=== PATIENT | female | born 1965 | race Caucasian/White ===

== ENCOUNTER → 2018-03-16 16:06 | Outpatient (CLI) | payer OTHER, SELFPAY ==
--- NOTE | 2018-03-16 16:10 | DI.RAD.S_ITS ---
PROCEDURE: XR CLAVICLE LT INDICATIONS: Clavicle pain TECHNIQUE: 2 views of the clavicle were acquired. COMPARISON: None. FINDINGS: Bones: No fractures or dislocations. No suspicious bony lesions. Soft tissues: No suspicious soft tissue calcifications. Patient is status post left axillary laura dissection. IMPRESSION: No radiographic abnormalities. If pain persists, consider advanced imaging with CT or MRI. Dictated by: Janet Starr M.D. on 03/16/2018 at 17:12 Approved by: Janet Starr M.D. on 03/16/2018 at 17:12
--- NOTE | 2018-03-16 16:10 | DI.RAD.S_ITS ---
PROCEDURE: STERNOCLAVICULAR JOINT BI INDICATIONS: Clavicle pain TECHNIQUE: 3 views of the sternoclavicular joints acquired. COMPARISON: None. FINDINGS: Bones: No dislocation. A subtle radiolucency is present at the proximal aspect of the left clavicle seen only on the oblique view. No other bony abnormalities. Soft tissues: Visualized lung apices are clear. No suspicious soft tissue calcifications or densities. Surgical clips are projected over the left axilla. IMPRESSION: Subtle lucency within the proximal aspect of the left clavicle. It is unclear whether this represents artifact or fracture. If there is point tenderness in this region, CT may be helpful to further characterize findings. Dictated by: Janet Starr M.D. on 03/16/2018 at 17:12 Approved by: Janet Starr M.D. on 03/16/2018 at 17:14
== END ==
PROVIDERS: Visit Provider Physician Assistant
DX: M25.512 Pain in left shoulder (principal); M89.8X1 Other specified disorders of bone, shoulder
CPT/HCPCS: 71130; 73000

== ENCOUNTER 2018-03-17 14:49 | Emergency (ER) | payer OTHER, SELFPAY ==
[2018-03-17 14:57] VITALS: BP 146/100; PULSE 76; RESP 18; TEMP 36.4; O2SAT 100; BMI 28.6
--- NOTE | 2018-03-17 15:00 | PC.NURSE ---
Seen at walk in clinic yesterday. Using ice for pain. States she can't take many pain medications r/t renal insuf r/t past chemotherapy and states I don't do well with narcotics.
--- NOTE | 2018-03-17 16:13 | ED.FALL ---
HPI - Fall General Chief Complaint: Trauma Stated Complaint: BROKEN SUB CLAVICLE JOINT, WALK IN SENT FOR CT Time Seen by Provider: 03/17/18 14:54 History of Present Illness HPI Narrative: HPI 52-year-old female with history of breast CA in remission and osteoporosis/osteopenia presents for further evaluation of a proximal left clavicular fracture and occurred following a mechanical fall from standing height 2 days prior to presentation. [place] catching herself partially with her outstretched hand. The patient had immediate pain in her proximal left clavicle. Patient also notes mild left AC discomfort and left trapezius pain. Patient also notes a mild sensation of discomfort when swallowing, this discomfort has remained stable and does not interfere with swallowing for breathing in his been present since her injury. Patient went to urgent care where she had imaging of her clavicle and sternoclavicular joint is was referred to the emergency department as the radiology read noted that the CTA may be helpful to further characterize findings. Patient without shortness of breath, denies further injuries. M/S/F/SocHx notable for: breast cancer, now in remission, osteopenia/osteoporosis; remainder reviewed with patient and in chart. ROS: Negative constitutional, eye, cardiovascular, pulmonary, GI, , MSK, skin, neurologic, psychiatric, endocrine unless noted in the HPI. Exam Gen: Pleasant, non-toxic appearing, resting in mild discomfort. HEENT: NC, AT, PEERL, EOMI. Patient speak comfortably, normal phonation, swallowing normal. Resp: Clear to auscultation bilaterally, normal work of breathing, no accessory muscle usage. Card: Regular rate and rhythm with no murmurs, rubs, or gallops, extremities warm and well perfused. GI: Non-tender to palpation throughout all quadrants, no focal tenderness at McBurney's point, negative Fuentes's sign, non-distended, no rebound or guarding. : No suprapubic tenderness to palpation. MSK: * spine - no C, T tenderness to palpation or palpable abnormalities * chest - point tenderness palpation on the proximal left clavicle. Mild surrounding ecchymosis, remainder of clavicle nontender with the exception of AC joint point tenderness to palpation. There is mild diffuse tenderness to palpation of the left trapezius without further palpable abnormalities, trapezius visually normal. * LUE - full functional range of motion left shoulder, left elbow, left wrist. 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 Sensation intact to touch over the deltoid. * remainder - remainder of appendicular skeleton and torso visually normal, patient ambulatory without discomfort. Skin: Normal color with no visible lesions. Neuro: AO x 3, no facial asymmetry, vision and hearing WNL. Psych: Mood and affect appropriate. MDM Previous chart, nursing note, labs, imaging, and vitals reviewed. A/P: 52-year-old female with history of breast CA in remission and osteoporosis/osteopenia presents for further evaluation of a proximal left clavicular fracture and occurred following a mechanical fall from standing height 2 days prior to presentation. Outside imaging reviewed (clavicle x-ray and sternoclavicular joint x-ray), this is notable for subtle lucency within the proximal aspect of the left clavicle. This correlates with the point tenderness at the patient is displaying. Physical exam and imaging without evidence of pneumothorax. Suspect nondisplaced left clavicular fracture. Regarding the patient's reported discomfort on swallowing this is stable, minor, absent without provocation, and the patient is not on anticoagulation order she any known coagulopathies. Given the minor nature the patient's injury is felt to be highly unlikely that the patient has a large vessel injury or esophageal injury. Suspect referred pain secondary to a food bolus passing under the area of injury. Discussion was had with the patient regarding further imaging versus watchful waiting. Further imaging is currently felt to be of low utility the patient elected to pursue watchful waiting. A sling was offered, however the patient notes that she is a sling at home and her trapezius discomfort is interfering with a sling. Pain medications offer, patient's poor renal function, as such incidents are not appropriate, however she is using acetaminophen but declined narcotic pain medications due to prior adverse side effects. Patient given return to care precautions instructed to follow up with orthopedic surgery Impression: left calvicular fracture. (please reference below for remainder of encounter information) Related Data Home Medications Medication Instructions Recorded Confirmed Biocel (with Lutein) 1 tab PO DAILY 03/17/18 03/17/18 Fish Oil 1 cap PO DAILY 03/17/18 03/17/18 Green Tea 1 dose PO DAILY 03/17/18 03/17/18 Heart Supplement 1 dose PO DAILY 03/17/18 03/17/18 Probiotic 1 tab PO DAILY 03/17/18 03/17/18 Supplements 1 dose PO DAILY 03/17/18 03/17/18 Vitamin B-12 1 tab PO DAILY 03/17/18 03/17/18 Vitamin D3 1 cap PO DAILY 03/17/18 03/17/18 calcium acetate 1 tab PO DAILY 03/17/18 03/17/18 carvedilol 3.125 mg PO BID 03/17/18 03/17/18 magnesium 1 tab PO DAILY 03/17/18 03/17/18 Allergies Allergy/AdvReac Type Severity Reaction Status Date / Time Sulfa (Sulfonamide Allergy Mild vomiting Verified 03/16/18 16:53 Antibiotics) Exam Initial Vital Signs Initial Vital Signs: Vital Signs Temperature 97.6 F 03/17/18 14:57 Pulse Rate 76 03/17/18 14:57 Respiratory Rate 18 03/17/18 14:57 Blood Pressure 146/100 H 03/17/18 14:57 Pulse Oximetry 100 03/17/18 14:57 PFSH Social History Smoking Status: Never smoker Course Vital Signs - 8 hr 03/17/18 14:57 Temperature 97.6 F Pulse Rate 76 Respiratory Rate 18 Blood Pressure 146/100 H Pulse Oximetry 100 Discharge Plan Departure Prescriptions: No Action carvedilol 3.125 mg Tablet 3.125 mg PO BID RF: 0 Biocel (with Lutein) 1 tab PO DAILY RF: 0 Fish Oil 1 cap PO DAILY RF: 0 Green Tea 1 dose PO DAILY RF: 0 Probiotic 1 tab PO DAILY RF: 0 Vitamin B-12 1 tab PO DAILY RF: 0 Vitamin D3 1 cap PO DAILY RF: 0 calcium acetate 1 tab PO DAILY RF: 0 magnesium 1 tab PO DAILY RF: 0 Heart Supplement 1 dose PO DAILY RF: 0 Supplements 1 dose PO DAILY RF: 0
[2018-03-17 16:27] VITALS: BP 138/89; PULSE 86; RESP 16; O2SAT 100
== END 2018-03-17 16:28 | disposition home or self-care (01) ==
PROVIDERS: Emergency Provider Emergency Medicine
DX: R52 Pain, unspecified (principal)
CPT/HCPCS: 99282; 99283